=== PATIENT | female | born 1970 | race Caucasian/White ===

== ENCOUNTER 2022-03-04 12:38 | Emergency (ER) | payer MEDICARE ==
[~2022-03-04 12:38] MED LIST: 3IN1 COMMODE; ABILIFY5 MG PO; ARNUITY ELLIPT50 MCG; CARAFATE1 GM PO; CLINDAMYCIN HC300 MG PO; CRESTOR40 MG PO; ELAVIL25 MG PO; ELAVIL50 MG PO; FLOVENT HF120 PUFFS/ INH; HYDROCODON-ACE1 EAC6 PO; KLONOPIN0.5 MG PO; KLOR-CON 1010 MEQ PO; LASIX40 MG PO; MELOXICAM15 MG PO; METFORMIN HCL500 MG PO; MOBIC7.5 MG PO; MOVANTIK25 MG PO; MYFORTIC360 MG PO; MYRBETRIQ25 MG PO; NEURONTIN600 MG PO; NICODERM CQ1 EAC1 TD; NORCO 5-325 TA1 EACH PO; NORVASC5 MG PO; PANTOPRAZOLE SO40 MG PO; PRINIVIL20 MG PO; PROTONIX 40MG T40 MG PO; SINGULAIR10 MG PO; SYNTHROID112 MCG PO; TAMOXIFEN CITRA20 MG PO; VENLAFAXINE HCL75 MG PO; VITAMIN B122500 MCG PO; ZOFRAN4 MG PO; ZOLPIDEM 5MG TAB5 MG PO
[2022-03-04 13:26] LABS: BASOPHIL 0.8 % (0-2); EOSINOPHIL 2.4 % (0-5); HCT 42.5 % (37.0-47.0); HGB 13.4 g/dl (12.5-16.0); LYMPHOCYTE 24.2 % (15-48); MCH 26.9 pg (25.0-31.0); MCHC 31.5 g/dL (32.0-36.0); MCV 85.2 fL (78.0-100.0); MONOCYTE 6.2 % (0-12); MPV 11.3 fL (6.0-9.5); NRBC 0; PLT 306 K/uL (150-400); RBC 4.99 M/uL (4.20-5.40); RDW 14.4 % (11.5-14.0); WBC 10.6 K/uL (4.0-10.5)
[2022-03-04 14:04] LABS: ALBUMIN 3.6 g/dL (3.4-5.0); BILIRUBIN - TOTAL 0.3 mg/dL (0.2-1.0); BUN/CREAT RATIO (CALC) 8.3 RATIO; CREATININE 0.6 mg/dL (0.51-0.95); GLOBULIN (CALCULATION) 3.6 g/dL; POTASSIUM 3.7 mmol/L (3.5-5.1); TOTAL PROTEIN 7.2 g/dL (6.4-8.2)
[2022-03-04 15:10] LABS: BILIRUBIN NEGATIVE (NEGATIVE); BLOOD TRACE-INTACT Ery/uL (NEGATIVE); CLARITY CLEAR (CLEAR); COLOR YELLOW (YELLOW); GLUCOSE (U) NORMAL (NORMAL); LEUKOCYTES NEGATIVE Leu/uL (NEGATIVE); NITRITE NEGATIVE (NEGATIVE); PROTEIN NEGATIVE (NEGATIVE); UROBILINOGEN 0.2 mg/dL (0.2-1.0)
[2022-03-04 15:21] LABS: BACTERIA TRACE; URINARY WBC RARE
== END 2022-03-04 15:30 | disposition home or self-care (01) ==
LOC: FER 12:38
PROVIDERS: Emergency Medicine
DX: I10 Essential (primary) hypertension (principal); R53.81 Other malaise; R51.9 Headache, unspecified; R11.0 Nausea; Z88.1 Allergy status to other antibiotic agents; Z88.8 Allergy status to other drugs, medicaments and biological substances
CPT/HCPCS: 36415; 70450; 71046; 80053; 81001; 84484; 85025; 93005